=== PATIENT | female | born 1980 | race Caucasian/White ===

== ENCOUNTER → 2023-09-11 10:39 | Outpatient (BNVA) | payer OTHER, MEDICAID, SELFPAY | PROVIDERS: PCP Nurse Practitioner Family; Visit Provider Podiatrist Foot & Ankle Surgery | DX: M72.2 Plantar fascial fibromatosis; M76.72 Peroneal tendinitis, left leg | CPT/HCPCS: 73630 ==

== ENCOUNTER 2023-11-20 11:23 | Outpatient (CLI) | payer OTHER, MEDICAID, SELFPAY | END 2023-11-20 11:24 | disposition home or self-care (01) | LOC: SPT 11:24 | PROVIDERS: PCP Nurse Practitioner Family; Visit Provider Podiatrist Foot & Ankle Surgery | DX: Z46.89 Encounter for fitting and adjustment of other specified devices (principal); M79.672 Pain in left foot; M72.2 Plantar fascial fibromatosis; M76.72 Peroneal tendinitis, left leg; G57.92 Unspecified mononeuropathy of left lower limb | CPT/HCPCS: L3030 ==

== ENCOUNTER → 2024-10-26 08:36 | Outpatient (BNVA) | payer OTHER, MEDICAID, SELFPAY | PROVIDERS: PCP Nurse Practitioner Family; Visit Provider Podiatrist Foot & Ankle Surgery | DX: M79.672 Pain in left foot (principal); M77.42 Metatarsalgia, left foot; M76.822 Posterior tibial tendinitis, left leg; E66.01 Morbid (severe) obesity due to excess calories; M72.2 Plantar fascial fibromatosis; G57.92 Unspecified mononeuropathy of left lower limb | CPT/HCPCS: 73630 ==

== ENCOUNTER 2024-11-06 16:13 | Outpatient (CLI) | payer OTHER, MEDICAID, SELFPAY ==
--- NOTE | 2024-11-06 06:30 | USR_ITS ---
PROCEDURE INFORMATION: Exam: US Left Limited Joint or Other Non-Vascular Extremity Structure Exam date and time: 11/06/2024 4:20 PM Age: 44 years old Clinical indication: Pain; Foot; Left; Additional info: Eft foot rule out mortons neuroma, left foot rule out mortons neuroma TECHNIQUE: Imaging protocol: US left limited joint or other nonvascular extremity structure. Real-time ultrasound with image documentation. Exam focused on the area of clinical interest. COMPARISON: CR XR foot LT min 3V* [id number] 10/26/2024 8:51 AM FINDINGS: Images of the left metatarsal region were obtained revealing no soft tissue abnormality. US/US soft tissue/extremity [id number] IMPRESSION: No abnormal findings.
== END 2024-11-06 16:14 | disposition home or self-care (01) ==
LOC: RAD 16:13
PROVIDERS: PCP Nurse Practitioner Family; Visit Provider Podiatrist Foot & Ankle Surgery
DX: M72.2 Plantar fascial fibromatosis (principal); M76.822 Posterior tibial tendinitis, left leg
CPT/HCPCS: 76882

== ENCOUNTER 2025-01-04 13:27 | Outpatient (CLI) | payer OTHER, MEDICAID, SELFPAY ==
--- NOTE | 2025-01-04 13:45 | MR_ITS ---
WS: [id number] MRI LEFT FOOT WITH AND WITHOUT CONTRAST. COMPARISON: Radiographs 10/26/2024. Ultrasound 11/06/2024 Multiplanar, multisequence imaging is performed with and without contrast. Sagittal and axial T1 fat sat sequences post-MultiHance 20 cc IV. No acute fractures or marrow edema. No soft tissue mass in the intermetatarsal spaces. No Soliman's neuroma is identified. There is no inflammation or neuritis involving the interdigital arteries. There is edema in the lateral sesamoid associated with the first metatarsal head. There is a small amount of edema along the lateral metatarsosesamoid ligament. On the postcontrast imaging this ligament appears to be intact. The ligament is small caliber with adjacent edema. The remaining ligaments and tendons appear to be intact. No fluid along the distal extensor or flexor tendons. No muscle atrophy or edema. MR/MR foot LT wo/w con [id number] IMPRESSION: 1. No Soliman's neuroma or enhancement of the interdigital nerves identified. 2. Mild increased T2 signal in the lateral sesamoid bone associated with the f irst metatarsal head. 3. There is edema adjacent to the lateral metatarsosesamoid ligament but the l igament although small caliber is intact.
== END 2025-01-04 13:28 | disposition home or self-care (01) ==
LOC: RAD 13:28
PROVIDERS: PCP Nurse Practitioner Family; Visit Provider Podiatrist Foot & Ankle Surgery
DX: M79.672 Pain in left foot (principal); M77.42 Metatarsalgia, left foot; R60.0 Localized edema; R93.7 Abnormal findings on diagnostic imaging of other parts of musculoskeletal system
CPT/HCPCS: 73720